=== PATIENT | male | born 1965 | race Caucasian/White ===

== ENCOUNTER 2020-03-18 06:07 | Observation (INO) | payer OTHER ==
[2020-03-11 13:30] LABS: HEMATOCRIT 43.6 % (42.0-52.0); HEMOGLOBIN 14.8 gm/dL (14.0-18.0); MCH 35.1 pg (26.0-34.0); MCV 103.4 fL (80.0-100.0); RBC 4.22 mil/uL (4.50-6.00); RDW 15.6 % (10.5-14.5); WBC 5.4 thou/uL (4.0-11.0)
[2020-03-11 13:39] LABS: URINE BILIRUBIN NEGATIVE (Negative); URINE BLOOD TRACE (Negative); URINE CLARITY CLEAR; URINE COLOR YELLOW; URINE GLUCOSE-RANDOM* NEGATIVE (Negative); URINE KETONES NEGATIVE (Negative); URINE LEUKOCYTES-REFLEX NEGATIVE (Negative); URINE NITRITE-REFLEX NEGATIVE (Negative); URINE PROTEIN (DIPSTICK) NEGATIVE (Negative); URINE SPECIFIC GRAVITY 1.015 (1.005-1.035); URINE UROBILINOGEN 0.2 E.U./dl (0.2-1.0)
[2020-03-11 13:42] LABS: ALBUMIN 4.3 g/dL (3.4-5.0); CALCIUM 9.4 mg/dL (8.5-10.1); CREATININE 1.2 mg/dL (0.7-1.3); POTASSIUM 4.7 mmol/L (3.5-5.1)
[2020-03-11 13:47] LABS: PROTIME 10.2 Seconds (9.3-11.4)
[~2020-03-18] VITALS: Ht 190.5 cm; Wt 133.8 kg
[~2020-03-18 06:07] MED LIST: CARVEDILOL12.5 MG PO; CLARITIN10 M3 PO; SERTRALINE HCL100 MG PO; ZESTRIL20 MG PO
[2020-03-18 07:00] VITALS: BP 176/108
[2020-03-18 12:15] VITALS: BP 121/76
--- NOTE | 2020-03-18 15:26 | NUR ---
PATIENT ADMITTED FROM OR WITH RIGHT KNEE ARTHROPLASTY, CARMENCITA DRESSING, THIGH HIGH SAMPSON HOSE, POLAR PACK, AND SCD'S IN PLACE. PATIENT DENIES PAIN AT THIS TIME. PATIENT HAS LEFT HAND IV WITH LR AT 100CC/HR. REGULAR LUNCH TRAY ORDERED. CARRIE/PT WORKED WITH THE PATIENT AND HE DID WELL. SCD'S HOOKED UP. VITAL SIGNS STABLE. ADMISSION COMPLETED. WILL REPORT TO JULIAN Cain/VERONICA. PATIENT ARRIVED ON THE UNIT AT 1210.
--- NOTE | 2020-03-18 15:51 | NUR ---
ASSESSMENT: CM REVIEWED CHART AND SPOKE WITH PT. PT HAD KNEE REPLACEMENT AND IS ALERT AND ORIENTED X4. PT REPORTS HE LIVES IN A TRIPLEX WITH HIS . PT REPORTS TWO STEPS TO ENTER AND ALL HIS NEEDS ARE ON THE MAIN LEVEL. PT REPORTS HAVING ABOUT 12 STEPS WITH HANDRAILS TO THER BASEMENT. PT REPORTS HE ALREADY HAS A WALKER AT HOME AND HAS OUTPATIENT THERAPY ARRANGED AT [facility] IN [place]. PT REPORTS THAT HE HAS NO NEEDS FROM CM. PLANS ARE TO POSSIBLY DISCHARGE HOME TOMORROW.
[2020-03-18 16:06] VITALS: BP 125/84
[2020-03-18 19:30] VITALS: BP 144/93
[2020-03-18 22:12] VITALS: BP 144/93
[2020-03-19] VITALS: BP 149/95
--- NOTE | 2020-03-19 01:57 | NUR ---
PT AOX4. PT DENIES PAIN AND SOB. PT AMBULATING WITH WALKER AND X1 ASSIST. PT WALKED AROUND UNIT X2 WITHOUT REPORTS OF PAIN. PT DOES REPORT PRESSIRE IN RIGHT KNEE WITHOUT DISCOMFORT. PT RECEIVING SCHEDULED PO MORPHINE WITH PRN PO OXYCODONE AVAILABLE. PT TOLERATING PO INTAKE OF FLUIDS ON REGULAR DIET. PT VOIDING IN TOILET. PT REPORTS DIFFICULTY SLEEPING. BUNDLE CLERK PROVIDER NOTIFIED, RECEIVED ORDER FOR PO 10MG MELATONIN PRN QHS FOR INSOMNIA. ENCOURAGED PT TO NOTIFY STAFF FOR ALL NEEDS. CALL LIGHT WITHIN REACH, BED ALARM ON, BED IN LOWEST POSITION. WILL CONTINUE TO MONITOR.
[2020-03-19 04:30] VITALS: BP 130/81
[2020-03-19 06:21] LABS: HEMATOCRIT 37.1 % (42.0-52.0); HEMOGLOBIN 12.3 gm/dL (14.0-18.0); MCH 34.9 pg (26.0-34.0); MCV 105.7 fL (80.0-100.0); RBC 3.51 mil/uL (4.50-6.00); RDW 15.3 % (10.5-14.5); WBC 5.7 thou/uL (4.0-11.0)
[2020-03-19 06:38] LABS: CREATININE 1.4 mg/dL (0.7-1.3); POTASSIUM 4.1 mmol/L (3.5-5.1)
[2020-03-19 07:24] VITALS: BP 113/77
--- NOTE | 2020-03-19 18:15 | NUR ---
PT A&OX4. AMBULATING WITH STAND BY ASSIST. CARMENCITA DRSG TO R KNEE IS C/D/I. POLAR PACK REMOVED PER PT REQUEST. DR. GAMBINO IN TO DC PT AT THIS TIME. IV REMOVED FROM L HAND. DC ISTRUCTIONS, F/U APPOINTMENT AND SCRIPTS GIVEN TO PT.
--- NOTE | 2020-03-19 18:27 | O ---
[address] [address] OPERATIVE REPORT Name: DEBBI LEAL Room #: 434-P [facility]..#: [id number] Admission: 03/18/20 Attend Phys: Thomas Barnes MD Discharge: Date of : 69 Report #: [id number] THIS REPORT FOR: cc: Alberto Morin,Alberto Paniagua,Thomas Cazares MD ~ CC: Alberto Barnes DATE OF SERVICE: 03/18/2020 SERVICE: Orthopedics FACILITY: [place]. SURGEON: Thomas Barnes MD RADIOLOGY SUPERVISOR: Merle Graf NP. PREOPERATIVE DIAGNOSES: 1. Severe right knee pain. 2. Medial compartment osteoarthritis, severe right knee. POSTOPERATIVE DIAGNOSES: 1. Severe right knee pain. 2. Medial compartment osteoarthritis, severe right knee. PROCEDURES: 1. Right unicompartmental knee arthroplasty. 2. Computer navigated robotic-assisted arthroplasty. ANESTHESIA: General with regional. COMPLICATIONS: None. DRAINS: None. SPECIMENS: None. FINDINGS: 1. Jarrell and Nephew Oxinium size 6 femoral component with size 6 Glendy tibial component and 10 mm baseplate. 2. 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 There was some mild chondromalacia and a small focal area about 6 x 6 mm on the more peripheral portion of the lateral femoral condyle. [address] [address] OPERATIVE REPORT Name: DEBBI LEAL Room #: 434-P [facility]#: [id number] Admission: 03/18/20 Attend Phys: Thomas Barnes MD Discharge: Date of : 69 Report #: [id number] HISTORY AND INDICATIONS: The patient is a 54-year-old gentleman who I have been seeing for over a year now for chronic persistent progressive medial-sided right knee pain that was affecting his daily activities and led to weight gain and inability to enjoy his recreational activities as well as impacting other aspects of his life and he had failed conservative measures to include rest, activity modifications, physical therapy, oral medicines and injections. He had x-rays, which showed [id number] medial compartment OA with osteophytes and sclerosis and was indicated for surgical treatment. We had discussion about uni versus total knee arthroplasty. He was in favor of the uni based on the indications and his physical exam and imaging was certainly consistent with that as the most optimal choice for an active man of his young age. Risks, benefits, alternatives and indications for surgery were discussed with him. Risks include but not limited to pain, bleeding, infection, injury to nerves or blood vessels and need for further surgery including revision to total knee arthroplasty, stiffness as well as complications related to anesthesia such as stroke, heart attack, pulmonary complications, thromboembolic disease and . Despite these risks, he wished to proceed. PROCEDURE IN DETAIL: After right lower extremity was correctly identified in the preoperative holding area as the operative extremity, the patient underwent placement of single shot regional nerve block. He was then taken to the operating room where general anesthesia was induced without complications, was padded appropriately. Prophylactic antibiotics were administered at appropriate time with 3 grams Ancef. He had a tourniquet applied to right leg. Right lower extremity was then prepped and draped in standard sterile fashion. Time-out procedure was performed. Standard anterior approach was made to the knee with a medial parapatellar arthrotomy and then we exposed the medial compartment where there were significant osteophytes present and these were resected with the rongeur. There was severe OA in this compartment. The patellofemoral compartment overall looked healthy. There was some diffuse grade 2 chondromalacia of the patella and a focal area of grade 3, but there were no grade 4 lesions and the lateral compartment looked very good, other than a small area of some chondromalacia, but there was no joint deterioration similar to the medial side. The ACL was intact. We placed the checkpoints and half pins for the Jarrell and NephSeatNinja Navio system and then assessed his range of motion and stability. He had 6 degree varus deformity with a 2 degree flexion contracture. We corrected him to 3 degrees of varus and 0 degrees of flexion contracture at the end of the case. We used the templating system to assess the gap balancing and implant position and sizing and then proceeded through preparing the femur and then the tibia in typical fashion. We placed the trials in place and sized 7 femur, looked a little large anteriorly, so we downsized to the 6 and this fit him very nicely and did not affect our gap balancing. There was a loose body in the posterior compartment of the knee. This was removed after removal of the trials and then [address] [address] OPERATIVE REPORT Name: DEBBI LEAL Room #: 434-P [facility] M.R.#: [id number] Admission: 03/18/20 Attend Phys: Thomas Barnes MD Discharge: Date of : 69 Report #: [id number] I performed the first of four 30 mL periarticular injection cocktail into the posterior aspect of the knee and the knee was then finally prepared and then the final implants were cemented into place with the size 6 Oxinium femoral component and size 6 tibial component. We allowed the cement to cure with a 10 mm poly trial after ensuring that all excess cement had been adequately resected. The knee was well balanced in extension. We achieved full extension. There was also balance through the mid flexion and flexion with no evidence of excessive tightness in the correction with residual varus was appropriate. The tourniquet was let down as the cement cured. Hemostasis was achieved. The remaining periarticular injection was infiltrated in the soft tissues around the knee for postoperative pain control, then we assessed with the trial one more time and then removed it, irrigated the knee once more and placed the final tibial tray into position and found that the knee was nicely balanced at this point. The wound was once more irrigated and then the arthrotomy was closed with 1 gram of vancomycin powder with 0 Vicryl suture in an interrupted fashion and then a gravity flexion test was performed. There was 2 layer closure with 2-0 Vicryl and the skin was closed with a running subcuticular 3-0 Monocryl and Dermabond. Sterile dressing was applied followed by compression stocking. The patient was awakened from anesthesia and taken to recovery room in stable condition. No complications. All counts were correct. <ELECTRONICALLY SIGNED> By: Thomas Barnes MD 03/19/20 1827 [id number] Thomas Barnes MD /nt
[2020-03-19 18:30] VITALS: BP 113/77
== END 2020-03-19 18:47 | disposition home or self-care (01) ==
LOC: OR 06:07 → TBA 06:08 → OR 12:24 → 4S 12:25 → OR 12:25 → 4S 03-19 18:47
PROVIDERS: ADMIT Orthopaedic Surgery Sports Medicine; ATTEND Orthopaedic Surgery Sports Medicine
DX: Z03.818 Encounter for observation for suspected exposure to other biological agents ruled out (principal); M17.11 Unilateral primary osteoarthritis, right knee
CPT/HCPCS: 50010; 50101; 50415; 50954; 51130; 51225; 51320; 52001; 52282; 53000; 53078; 53370; 54118; 56527; 56528; 57095; 57103; 57110; 57127; 57180; 62110; 62900; 70005